=== PATIENT | male | born 1990 | race Caucasian/White ===

== ENCOUNTER 2021-07-08 23:54 | Emergency (ER) | payer OTHER ==
[~2021-07-08] VITALS: Ht 167.6 cm; Wt 87.9 kg
[2021-07-09] MEDS ORDERED: ONDANSETRON 2MG/ML, 2ML ONE (00:27)
[2021-07-09] MEDS ORDERED: FAMOTIDINE 20 MG/2 ML ONE (00:27)
[2021-07-09] MEDS ORDERED: MAALOX/HYOSCYAMINE/LIDOCAINE 45 ML BTL ONE (00:27)
[2021-07-09] MEDS ORDERED: ONDANSETRON 2MG/ML, 2ML IVPush ONE (00:30)
[2021-07-09] MEDS ORDERED: SODIUM CHLORIDE 0.9% 1,000ML IVBOLUS ONE (00:30)
[2021-07-09] MEDS ORDERED: FAMOTIDINE 20 MG/2 ML IVPush ONE (00:30)
[2021-07-09] MEDS ORDERED: MAALOX/HYOSCYAMINE/LIDOCAINE 45 ML BTL PO ONE (00:30)
--- NOTE | 2021-07-09 00:50 | NUR ---
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
--- NOTE | 2021-07-09 00:51 | NUR ---
PT C/O OF VOMITTING UP BLOOD AND COFFEE GROUNDS SINCE 6 HOURS AGO PPT C/O OF ALL QUADRANT ABDMONIAL PAIN. PT STATES HE HAS FATTY LIVER DISEASE. ATTACHED TO CARD/SP02/BP ONITOS. VSS. BED IN LOW, RAILS ENGAGED, CALL LIGHT ON LAP. WCTM
[2021-07-09 01:03] LABS: BASOPHILS % (AUTO) 1 % (0-1); EOSINOPHILS % (AUTO) 1 % (1-7); LYMPHOCYTES % (AUTO) 28 % (22-44); MEAN CORPUSCULAR HEMOGLOBIN 32.1 pg (27.5-34.5); MEAN CORPUSCULAR HGB CONC 34.6 g/dL (33.2-36.2); MEAN PLATELET VOLUME 8.3 fL (7.4-10.4); MONOCYTES % (AUTO) 8 % (2-9); NEUTROPHILS % (AUTO) 63 % (42-75); PLATELET COUNT 192 x10^3/uL (130-400); RED BLOOD COUNT 4.54 x10^6/uL (4.38-5.82); RED CELL DISTRIBUTION WIDTH 13.6 % (9.4-14.8)
[2021-07-09 01:06] LABS: ALBUMIN 3.5 g/dL (3.4-5.0); ANION GAP 8 mmol/L (5-15); CALCIUM 8.5 mg/dL (8.5-10.1); CHLORIDE 105 mmol/L (98-107)
[2021-07-09 01:12] LABS: ALANINE AMINOTRANSFERASE 50 U/L (12-78); ALKALINE PHOSPHATASE 93 U/L (45-117); BILIRUBIN,TOTAL 0.4 mg/dL (0.2-1.0); TOTAL PROTEIN 6.8 g/dL (6.4-8.2)
[2021-07-09 02:26] VITALS: BP 124/74
--- NOTE | 2021-07-09 02:42 | NUR ---
Patient/Caregiver given discharge instructions and they have confirmed that they understand the instructions. Patient ambulatory with steady gait. NAD, all questions answered appropriately, denies additional needs at this time. No personal belongings left in room after discharge.
[2021-07-25] MEDS ORDERED: OMEP20TA62 PO (16:10)
[2021-07-25] MEDS ORDERED: CALC625T23 PO (16:12)
[2021-07-25] MEDS ORDERED: MULT-658 PO (16:13)
== END 2021-07-09 02:44 | disposition home or self-care (01) ==
LOC: ED 07-09
DX: K29.20 Alcoholic gastritis without bleeding (principal); F10.139 Alcohol abuse with withdrawal, unspecified; R11.2 Nausea with vomiting, unspecified; F17.210 Nicotine dependence, cigarettes, uncomplicated; Y90.0 Blood alcohol level of less than 20 mg/100 ml
CPT/HCPCS: 36415; 76705; 80053; 83690; 85025; 96361; 96374; 96375; 99284; 99406; J2405; J7030

== ENCOUNTER 2021-07-24 11:48 | Emergency (ER) | payer MEDICAID ==
[~2021-07-24] VITALS: Ht 167.6 cm; Wt 117.2 kg
[2021-07-24 15:20] VITALS: BP 110/52
== END 2021-07-24 18:00 ==
LOC: ED 12:39 → UNDOADMIN 16:10 → 3E 16:10 → ED 18:00
DX: F33.9 Major depressive disorder, recurrent, unspecified (principal); F10.220 Alcohol dependence with intoxication, uncomplicated; R45.851 Suicidal ideations; R11.10 Vomiting, unspecified; Z20.822 Contact with and (suspected) exposure to COVID-19
CPT/HCPCS: 36415; 80053; 80299; 80307; 80320; 83690; 85025; 87426; 96360; 99285; J7030